=== PATIENT | male | born 1985 | race Caucasian/White ===

== ENCOUNTER 2021-02-23 14:43 | Emergency (ER) | payer OTHER, SELFPAY ==
[2021-02-23 14:47] VITALS: BP 164/86; PULSE 71; RESP 16; TEMP 35.8; O2SAT 99
[2021-02-23] MEDS: FAMOTIDINE 20 MG TABLET PO (16:37)
[2021-02-23] MEDS: methylPREDNISolone SOD SUCC 125 MG VIAL IM (16:37)
[2021-02-23] MEDS: diphenhydrAMINE HCl CAP 25 MG CAPSULE PO (16:37)
--- NOTE | 2021-02-23 17:16 | ED.ALLEREA ---
HPI - Allergic Reaction General Chief complaint: Allergic Reaction Stated complaint: rash Time Seen by Provider: 02/23/21 15:36 Source: patient Mode of arrival: ambulatory Limitations: no limitations History of Present Illness HPI narrative: Patient 35-year-old male presented with chief complaint of pruritic rash noted to his bilateral arms and forearms that began a few hours prior to arrival. Patient states that he is not sure what caused the symptoms. Not aware of any new soaps lotions or detergents. Patient denies taking any medications prior to arrival. Patient denies any swelling of his face, mouth or throat. Related Data Allergies Allergy/AdvReac Type Severity Reaction Status Date / Time No Known Allergies Allergy Verified 02/23/21 16:01 Review of Systems Review of Systems: CONSTITUTIONAL: Denies fever, chills, or sweats. EYES: Denies visual changes, redness, or discharge. ENT: Denies rhinorrhea, congestion, sore throat, or otalgia. CARDIOVASCULAR: Denies chest pain, palpitations, or edema. RESPIRATORY: Denies cough or dyspnea. GASTROINTESTINAL: Denies abdominal pain, nausea, vomiting, or diarrhea. GENITOURINARY: Denies dysuria or hematuria. SKIN: Reports rash or itching. MUSCULOSKELETAL: Denies back pain, joint pain, or myalgia. NEUROLOGIC: Denies headache, numbness, dizziness, or weakness. PSYCHIATRIC: Denies anxiety or depression. Exam Narrative: GENERAL: Well-appearing, well-nourished, and in no acute distress. HEAD: Normocephalic, atraumatic. EYES: PERRLA and EOMI. ENT: Nares clear, no rhinorrhea or epistaxis. Mucous membranes moist. Oropharynx without tonsillar hypertrophy exudate or other lesions. Bilateral TMs pearly june nonbul.airway patent without rash NECK: Supple. No adenopathy or masses. No carotid bruits or JVD CHEST: Clear to auscultation. No respiratory distress. No wheezes rales or rhonchi HEART: Regular rate and rhythm. No murmur heard. Normal peripheral pulses. EXTREMITIES: Normal range of motion. No edema. SKIN: Urticarial rash and patient bilateral hands extending up to the elbows. NEURO: No focal deficits. Alert and oriented x3. PSYCH: Normal mood and affect. Course Vital Signs Vital signs: Vital Signs Temperature 96.5 F L 02/23/21 14:47 Pulse Rate 71 02/23/21 14:47 Respiratory Rate 16 02/23/21 14:47 Blood Pressure 164/86 H 02/23/21 14:47 Pulse Oximetry 99 02/23/21 14:47 Temperature 96.5 F L 02/23/21 14:47 Pulse Rate 71 02/23/21 14:47 Respiratory Rate 16 02/23/21 14:47 Blood Pressure 164/86 H 02/23/21 14:47 Pulse Oximetry 99 02/23/21 14:47 MDM - Allergic Reaction MDM Narrative Medical decision making narrative: Patient has noticed improvement in his symptoms with Solu-Medrol, Benadryl and Pepcid. Patient will be discharged home with Medrol Dosepak, Zyrtec 10 mg a. Patient instructed to follow-up with his primary care if symptoms persist as he may need to see a public works commissioner. Patient is return to emergency department immediately if he has chest pain, shortness of breath, to the swelling or any facial or mouth or throat involvement. Differential Diagnosis Differential diagnosis: Likely anaphylaxis, allergic reaction, angioedema, contact dermatitis, adverse reaction to drug, viral enanthem and urticaria Discharge Plan Discharge Clinical Impression: Urticaria Patient Disposition: Home, Self-Care Condition: Improved Instructions: Antibiotic Form, Urticaria (ED) Additional Instructions: Take zyrtec and pepcid as instructed. Take the medrol dose dante instructed. Avoid irritants and potential causes. Follow up with your PCP for reevaluation. You may need referral to public works commissioner if symptoms persist Return to the ER if you have any emergent symptoms including but not limited to shortness of breath, throat swelling, trouble swallowing, swelling of lips or mouth, etc. Prescriptions: New methylprednisolone [Medrol (Dante)] 4 mg tablets,dose p
[2021-02-23 17:41] VITALS: BP 154/87; PULSE 76; RESP 16; TEMP 36.6; O2SAT 99
== END 2021-02-23 17:41 | disposition home or self-care (01) ==
PROVIDERS: Emergency Provider Emergency Medicine
DX: L50.9 Urticaria, unspecified (principal)
CPT/HCPCS: 96372; 99283; A9270; J2930